=== PATIENT | female | born 1935 | race Caucasian/White ===

== ENCOUNTER 2025-01-07 11:30 | Inpatient (IN) | payer MEDICARE ==
[~2025-01-07] VITALS: Ht 152.4 cm; Wt 75.4 kg
[2025-01-07] MEDS ORDERED: NOXI1TAB PO (11:51)
[2025-01-07] MEDS ORDERED: RA N1TAB PO (11:51)
[2025-01-07] MEDS ORDERED: LMEF1TAB PO (11:51)
[2025-01-07] MEDS ORDERED: METO1TAB32 PO (11:51)
[2025-01-07] MEDS ORDERED: ASPI81CH33 PO (11:51)
[2025-01-07] MEDS ORDERED: POTA-151 PO (11:51)
[2025-01-07] MEDS ORDERED: LOSA100T46 PO (11:51)
[2025-01-07] MEDS ORDERED: ATOR40TA75 PO (11:51)
[2025-01-07] MEDS ORDERED: METO1TAB87 PO (11:51)
[2025-01-07] MEDS ORDERED: HYDR-3490 PO (11:51)
[2025-01-07] MEDS ORDERED: DOXE10CA PO (11:51)
[2025-01-07 13:07] LABS: BASO # 0.1 10^3/uL (0.0-0.2); BASO % 0.3 % (0.0-1.0); EOS # 0.3 10^3/uL (0.0-0.5); EOS % 1.7 % (0.0-3.0); LYMPH # 1.0 10^3/uL (1.5-5.0); LYMPH % 4.9 % (24.0-44.0); MONO # 1.4 10^3/uL (0.0-0.8); MONO % 7.3 % (2.0-8.0); NEUTROPHILS # 16.6 10^3/uL (1.5-8.5); NEUTROPHILS % 84.4 % (36.0-66.0); PLATELET COUNT, AUTOMATED 245 10^3/uL (150-450)
[2025-01-07 13:38] LABS: ALT/SGPT 78.0 U/L (7.0-40); AST/SGOT 89.0 U/L (<34); CALCIUM LEVEL 9.0 MG/DL (8.3-10.6); CARBON DIOXIDE LEVEL 26.0 MMOL/L (20-31); CHLORIDE LEVEL 104.0 MMOL/L (98-107); CK-MB VALUE MASS 5.8 NG/ML (<3.6); CPK CREATINE PHOSPHOKINASE 335.0 U/L (34-145); CREATININE FOR GFR 1.03 MG/DL (0.55-1.30); GLOMERULAR FILTRATION RATE 52.6 (>32); MB/CK RELATIVE INDEX 1.73 (< OR =4); POTASSIUM SERUM 4.1 MMOL/L (3.5-5.1); SODIUM LEVEL 143.0 MMOL/L (136-145)
[2025-01-07 13:41] LABS: THYROXINE (T4) 6.6 UG/DL (4.5-10.9)
[2025-01-07] MEDS ORDERED: ISOVUE-370 76% 100 ML VIAL As Ordered ONE (13:53)
[2025-01-07 14:09] LABS: INR 1.03
[2025-01-07] MEDS: cefTRIAXone SOD 1 GM in DEXTROSE 5% (D5W) ADV/MINI-BAG 50 ML IV ONE (15:13)
[2025-01-07] MEDS: AZITHROMYCIN INJ 500 MG, VIAL MATE ADAPTER 1 EACH in D5W 250 ML IV ONE (16:08)
[2025-01-07] MEDS ORDERED: **NOTE PATIENT COMMENT** MISC XX SCH (16:15)
[2025-01-07] MEDS: NS (Normal Saline) 0.9% 1,000 ML IV ONE (16:15)
[2025-01-07] MEDS ORDERED: IPRATROPIUM 0.5 MG/ALBUTEROL 2.5 MG INH SOL UD 3 ML NEB PRN (16:15)
[2025-01-07] MEDS ORDERED: ASPI81TA26 PO (16:35)
[2025-01-07] MEDS ORDERED: MAGN400T2 PO (16:37)
[2025-01-07] MEDS ORDERED: NIAC500T29 PO (16:41)
[2025-01-07] MEDS ORDERED: D 1010004 PO (16:42)
[2025-01-07] MEDS ORDERED: HOME MED LIST COMPLETE! XX SCH (16:45)
[2025-01-07 18:10] VITALS: BP 140/82; TEMP 96.8; O2SAT 96
[2025-01-07 19:16] VITALS: BP 158/67; TEMP 97.1; O2SAT 96
[2025-01-07] MEDS: IPRATROPIUM 0.5 MG/ALBUTEROL 2.5 MG INH SOL UD 3 ML NEB SCH (19:39)
[2025-01-07 20:00] VITALS: BP 158/67; TEMP 97.1; O2SAT 96
[2025-01-07] MEDS: MAGNESIUM OXIDE 400 MG TAB PO SCH (20:12)
[2025-01-07] MEDS: DOXYCYCLINE HYCLATE 100 MG in DEXTROSE 5% (D5W) MINI-BAG PLU 100 ML IV SCH (20:12)
[2025-01-07] MEDS: ATORVASTATIN 20 MG TAB PO SCH (20:13)
[2025-01-07] MEDS: METOPROLOL TART 12.5 MG PER 1/2 TAB PO SCH (20:13)
[2025-01-07] MEDS ORDERED: DOXEPIN 25 MG CAP PO SCH (21:00)
[2025-01-07 23:04] VITALS: BP 115/67; TEMP 98.4; O2SAT 97
[2025-01-08] VITALS (9 sets, daily range): BP systolic 114–155; BP diastolic 55–83; TEMP 97–98.4; O2SAT 94–97
[2025-01-08 05:58] LABS: PLATELET COUNT, AUTOMATED 253 10^3/uL (150-450)
[2025-01-08 06:30] LABS: CALCIUM LEVEL 8.4 MG/DL (8.3-10.6); CARBON DIOXIDE LEVEL 24.0 MMOL/L (20-31); CHLORIDE LEVEL 100.0 MMOL/L (98-107); CREATININE FOR GFR 0.91 MG/DL (0.55-1.30); GLOMERULAR FILTRATION RATE 61.1 (>32); MAGNESIUM LEVEL 1.0 MG/DL (1.8-2.4); POTASSIUM SERUM 2.8 MMOL/L (3.5-5.1); SODIUM LEVEL 140.0 MMOL/L (136-145)
[2025-01-08] MEDS: MAG SULF 1GM/100ML (MAG RUN) 1 GM in IV 1 EA IV SCH (07:50)
[2025-01-08] MEDS: ENOXAPARIN 40 MG/0.4 ML SYRINGE (J1650 PER 10MG) SC SCH (08:33)
[2025-01-08] MEDS: ASPIRIN 81 MG ENTERIC TABLET PO SCH (08:34)
[2025-01-08] MEDS: POTASSIUM CHLORIDE 10MEQ SR TABLET PO ONE (08:34)
[2025-01-08] MEDS: cefTRIAXone SOD 2 GM in DEXTROSE 5% (D5W) ADV/MINI-BAG 50 ML IV SCH (14:34)
[2025-01-08] MEDS: POTASSIUM CHLORIDE 10MEQ SR TABLET PO SCH (16:45)
[2025-01-08] MEDS: DOXYCYCLINE HYCLATE 100 MG TABLET PO SCH (20:04)
[2025-01-09] VITALS (9 sets, daily range): BP systolic 126–156; BP diastolic 60–83; TEMP 97.2–98.6; O2SAT 93–98
[2025-01-09 05:50] LABS: PLATELET COUNT, AUTOMATED 260 10^3/uL (150-450)
[2025-01-09 06:37] LABS: CALCIUM LEVEL 8.6 MG/DL (8.3-10.6); CARBON DIOXIDE LEVEL 24.0 MMOL/L (20-31); CHLORIDE LEVEL 102.0 MMOL/L (98-107); CREATININE FOR GFR 0.86 MG/DL (0.55-1.30); GLOMERULAR FILTRATION RATE 65.3 (>32); MAGNESIUM LEVEL 1.3 MG/DL (1.8-2.4); POTASSIUM SERUM 3.8 MMOL/L (3.5-5.1); SODIUM LEVEL 138.0 MMOL/L (136-145)
[2025-01-09] MEDS: MAG SULF 1GM/100ML (MAG RUN) 1 GM in IV 1 EA IV SCH (07:33)
[2025-01-09] MEDS: MAGNESIUM OXIDE 400 MG TAB PO SCH (08:14)
[2025-01-09] MEDS: guaiFENesin DM *SUGAR FREE* 5ML**DIABETIC TUSSIN DM PO ONE (11:16)
[2025-01-10] VITALS (8 sets, daily range): BP systolic 118–147; BP diastolic 59–68; TEMP 96.9–98.2; O2SAT 93–95
[2025-01-10] MEDS: ACETAMINOPHEN 325 MG TAB PO PRN (00:37)
[2025-01-10] MEDS: guaiFENesin DM *SUGAR FREE* 5ML**DIABETIC TUSSIN DM PO PRN (00:40)
[2025-01-10 05:31] LABS: BASO # 0.0 10^3/uL (0.0-0.2); BASO % 0.2 % (0.0-1.0); EOS # 0.0 10^3/uL (0.0-0.5); EOS % 0.1 % (0.0-3.0); LYMPH # 0.9 10^3/uL (1.5-5.0); LYMPH % 5.9 % (24.0-44.0); MONO # 0.9 10^3/uL (0.0-0.8); MONO % 5.5 % (2.0-8.0); NEUTROPHILS # 13.4 10^3/uL (1.5-8.5); NEUTROPHILS % 85.4 % (36.0-66.0); PLATELET COUNT, AUTOMATED 269 10^3/uL (150-450)
[2025-01-10 06:03] LABS: CALCIUM LEVEL 8.7 MG/DL (8.3-10.6); CARBON DIOXIDE LEVEL 25.0 MMOL/L (20-31); CHLORIDE LEVEL 103.0 MMOL/L (98-107); CREATININE FOR GFR 0.84 MG/DL (0.55-1.30); GLOMERULAR FILTRATION RATE 67.2 (>32); MAGNESIUM LEVEL 1.8 MG/DL (1.8-2.4); POTASSIUM SERUM 5.2 MMOL/L (3.5-5.1); SODIUM LEVEL 137.0 MMOL/L (136-145)
[2025-01-10] MEDS: DEXTROSE 50% 50 ML SYRINGE IV STA (08:06)
[2025-01-10] MEDS: HumuLIN R (REGULAR) INSULIN (NovoLIN R) **100 U/ML** PER UNIT IV STA (08:06)
[2025-01-10 11:50] LABS: CALCIUM LEVEL 9.3 MG/DL (8.3-10.6); CARBON DIOXIDE LEVEL 22.0 MMOL/L (20-31); CHLORIDE LEVEL 102.0 MMOL/L (98-107); CREATININE FOR GFR 0.79 MG/DL (0.55-1.30); GLOMERULAR FILTRATION RATE 72.4 (>32); POTASSIUM SERUM 4.7 MMOL/L (3.5-5.1); SODIUM LEVEL 137.0 MMOL/L (136-145)
[2025-01-10] MEDS ORDERED: PROBCAP14 PO (12:38)
[2025-01-10] MEDS ORDERED: LEVO1TAB40 PO (12:38)
[2025-01-10] MEDS ORDERED: ROBI1LIQ9 PO (12:38)
[2025-01-10] MEDS: ALBUTEROL SULFATE 2.5 MG/0.5 ML INH CONCENTRATE NEB SOLN NEB SCH (13:39)
[2025-01-11 00:02] LABS: URINE STREP PNEUMONIAE ANTIGEN Not Detected (Not Detected)
== END 2025-01-10 16:11 | disposition home or self-care (01) | DRG 195 ==
LOC: M ED 11:30 → EDBD 11:30 → M ED INP 16:13 → M PCU 18:04
PROVIDERS: ADMIT Family Medicine; ATTEND Family Medicine
DX: J18.9 Pneumonia, unspecified organism (principal); I11.9 Hypertensive heart disease without heart failure; E78.5 Hyperlipidemia, unspecified; I25.10 Atherosclerotic heart disease of native coronary artery without angina pectoris; M19.011 Primary osteoarthritis, right shoulder; M19.012 Primary osteoarthritis, left shoulder; M19.031 Primary osteoarthritis, right wrist; M19.032 Primary osteoarthritis, left wrist; E87.6 Hypokalemia; E83.42 Hypomagnesemia; Z79.899 Other long term (current) drug therapy; Z95.2 Presence of prosthetic heart valve; Z95.0 Presence of cardiac pacemaker; Z88.5 Allergy status to narcotic agent

== ENCOUNTER → 2025-01-17 | Outpatient (REF) | payer MEDICARE, OTHER ==
[~2025-01-17] MED LIST: ASPI81CH33 PO; ASPI81TA26 PO; ATOR40TA75 PO; D 1010004 PO; DOXE10CA PO; HYDR-3490 PO; LEVO1TAB40 PO; LMEF1TAB PO; LOSA100T46 PO; MAGN400T2 PO; METO1TAB32 PO; METO1TAB87 PO; NIAC500T29 PO; NOXI1TAB PO; POTA-151 PO; PROBCAP14 PO; RA N1TAB PO; ROBI1LIQ9 PO
[2025-01-17 19:06] LABS: PLATELET COUNT, AUTOMATED 298 10^3/uL (150-450)
[2025-01-17 19:14] LABS: C REACTIVE PROTEIN QUANTITATIV 0.93 MG/DL (<1.0)
[2025-01-17 19:15] LABS: ALT/SGPT 30.0 U/L (7.0-40); AST/SGOT 26.0 U/L (<34); CALCIUM LEVEL 9.0 MG/DL (8.3-10.6); CARBON DIOXIDE LEVEL 27.0 MMOL/L (20-31); CHLORIDE LEVEL 103.0 MMOL/L (98-107); CREATININE FOR GFR 1.36 MG/DL (0.55-1.30); GLOMERULAR FILTRATION RATE 37.7 (>32); MAGNESIUM LEVEL 1.2 MG/DL (1.8-2.4); POTASSIUM SERUM 4.1 MMOL/L (3.5-5.1); SODIUM LEVEL 142.0 MMOL/L (136-145)
== END ==
LOC: M SFHCCLAY 11:47
PROVIDERS: ATTEND Family Medicine
DX: J18.9 Pneumonia, unspecified organism (principal); E83.42 Hypomagnesemia; M25.60 Stiffness of unspecified joint, not elsewhere classified

== ENCOUNTER → 2025-02-01 | Outpatient (REF) | payer MEDICARE, OTHER ==
[2025-02-01 14:59] LABS: CALCIUM LEVEL 8.5 MG/DL (8.3-10.6); CARBON DIOXIDE LEVEL 26.0 MMOL/L (20-31); CHLORIDE LEVEL 107.0 MMOL/L (98-107); CREATININE FOR GFR 0.72 MG/DL (0.55-1.30); GLOMERULAR FILTRATION RATE 80.9 (>32); MAGNESIUM LEVEL 1.7 MG/DL (1.8-2.4); POTASSIUM SERUM 4.7 MMOL/L (3.5-5.1); SODIUM LEVEL 138.0 MMOL/L (136-145)
== END ==
LOC: M SFHCADAM 09:25
PROVIDERS: ATTEND Family Medicine
DX: N17.9 Acute kidney failure, unspecified (principal); E83.42 Hypomagnesemia

== ENCOUNTER → 2025-02-07 | Outpatient (CLI) | payer MEDICARE, OTHER | LOC: M CLY 12:04 | PROVIDERS: ATTEND Family Medicine | DX: R09.89 Other specified symptoms and signs involving the circulatory and respiratory systems (principal) ==

== ENCOUNTER → 2025-02-07 | Outpatient (REF) | payer MEDICARE, OTHER ==
[2025-02-07 18:43] LABS: PLATELET COUNT, AUTOMATED 212 10^3/uL (150-450)
[2025-02-07 19:08] LABS: ALT/SGPT 20.0 U/L (7.0-40); AST/SGOT 27.0 U/L (<34); CALCIUM LEVEL 9.5 MG/DL (8.3-10.6); CARBON DIOXIDE LEVEL 27.0 MMOL/L (20-31); CHLORIDE LEVEL 105.0 MMOL/L (98-107); CHOLESTEROL LEVEL 171.0 MG/DL (<200); CHOLESTEROL RISK RATIO 2.12 (<5); CREATININE FOR GFR 0.85 MG/DL (0.55-1.30); GLOMERULAR FILTRATION RATE 66.3 (>32); LDL CHOLESTEROL 78.4 MG/DL (<100); NON-HDL-C 90.6 MG/DL; POTASSIUM SERUM 4.3 MMOL/L (3.5-5.1); SODIUM LEVEL 142.0 MMOL/L (136-145); TRIGLYCERIDES LEVEL 61.0 MG/DL (<150)
[2025-02-07 19:10] LABS: FREE T4 1.2 NG/DL (0.89-1.76)
[2025-02-07 19:11] LABS: CALCIUM LEVEL 9.2 MG/DL (8.3-10.6); CARBON DIOXIDE LEVEL 27.0 MMOL/L (20-31); CHLORIDE LEVEL 106.0 MMOL/L (98-107); CREATININE FOR GFR 0.84 MG/DL (0.55-1.30); GLOMERULAR FILTRATION RATE 67.2 (>32); MAGNESIUM LEVEL 1.8 MG/DL (1.8-2.4); POTASSIUM SERUM 4.6 MMOL/L (3.5-5.1); SODIUM LEVEL 142.0 MMOL/L (136-145)
[2025-02-07 19:29] LABS: ESTIMATED AVERAGE GLUCOSE 117.0 MG/DL (60-110)
== END ==
LOC: M SFHCADAM 11:50
PROVIDERS: ATTEND Family Medicine
DX: N17.9 Acute kidney failure, unspecified (principal); E83.42 Hypomagnesemia; R60.0 Localized edema; R09.89 Other specified symptoms and signs involving the circulatory and respiratory systems